=== PATIENT | male | born 1985 | race Caucasian/White ===

== ENCOUNTER 2025-08-05 13:26 | Emergency (ER) | payer BC, SELFPAY ==
[2025-08-05 13:29] VITALS: BP 132/68; PULSE 67; RESP 20; TEMP 37.1; O2SAT 98
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
[2025-08-05] MEDS: Ibuprofen 600 MG TAB PO (14:03)
[2025-08-05] MEDS: Acetaminophen 500 MG TAB 1000 MG PO (14:03)
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
== END 2025-08-05 15:06 | disposition home or self-care (01) ==
LOC: ER 15:00
PROVIDERS: Emergency Provider Emergency Medicine
DX: S43.102A Unspecified dislocation of left acromioclavicular joint, initial encounter (principal); V18.0XXA Pedal cycle driver injured in noncollision transport accident in nontraffic accident, initial encounter
CPT/HCPCS: 99283 ×2; 73030